=== PATIENT | male | born 1995 | race Caucasian/White ===

== ENCOUNTER 2021-08-10 07:27 | Emergency (ER) | payer OTHER ==
--- NOTE | 2021-08-10 07:31 | PHYS DOC ---
Adult General HPI HPI Patient is a 25-year-old male presenting to the emergency department for reported difficulty waking him up this morning. Patient lives at a custodial house reportedly some people who have had issues with drugs abuse in the past now live. Patient reportedly used K2 earlier in the week but patient denies any drug use at this time. Patient says that he is new to the area but knows that he is in [facility] and he knows the month and the year but not the exact day. He could tell me his name and he said that he has no complaints of pain shortness of breath fevers chills nausea vomiting. He denied all medical complaints. He says he has no medical problems and takes no medications on a re gular basis. He is in no acute distress with normal vital signs. Review of Systems Review of Systems Constitutional: Denies fever or chills [] Eyes: Denies change in visual acuity, redness, or eye pain [] HENT: Denies nasal congestion or sore throat [] Respiratory: Denies cough or shortness of breath [] Cardiovascular: No additional information not addressed in HPI [] GI: Denies abdominal pain, nausea, vomiting, bloody stools or diarrhea [] : Denies dysuria or hematuria [] Musculoskeletal: Denies back pain or joint pain [] Integument: Denies rash or skin lesions [] Neurologic: Denies headache, focal weakness or sensory changes [] Endocrine: Denies polyuria or polydipsia [] All other systems were reviewed and found to be within normal limits, except as documented in this note. Physical Exam Physical Exam Constitutional: Well developed, well nourished, no acute distress, non-toxic appearance. [] HENT: Normocephalic, atraumatic, bilateral external ears normal, oropharynx moist, no oral exudates, nose normal. [] Eyes: PERRLA, EOMI, conjunctiva normal, no discharge. [] Neck: Normal range of motion, no tenderness, supple, no stridor. [] Cardiovascular:Heart rate regular rhythm, no murmur [] Lungs & Thorax: Bilateral breath sounds clear to auscultation [] Abdomen: Bowel sounds normal, soft, no tenderness, no masses, no pulsatile masses. [] Skin: Warm, dry, no erythema, no rash. [] Back: No tenderness, no CVA tenderness. [] Extremities: No tenderness, no cyanosis, no clubbing, ROM intact, no edema. [] Neurologic: Alert and oriented X 3, normal motor function, normal sensory function, no focal deficits noted. [] Psychologic: Affect normal, judgement normal, mood normal. [] EKG EKG [] Radiology/Procedures Radiology/Procedures [] Heart Score C/O Chest Pain: No Risk Factors: Risk Factors: DM, Current or recent (<one month) smoker, HTN, HLP, family hi story of CAD, obesity. Risk Scores: Risk Factors: DM, Current or recent (<one month) smoker, HTN, HLP, family history of CAD, obesity. Course & Med Decision Making Course & Med Decision Making Patient has no medical complaints and he is in no acute distress with normal vital signs, on nurses repeat questioning he did admit to K2 use last night. I ordered blood test and a urinalysis but patient refused stating that he did not want any testing done and wanted to go back to the [facility]. Patient has normal vital signs and has capacity to make his own medical decisions and I do not see any grounds to hold him against his will or force him to get medical tests. Given patient is alert and oriented and is requesting to be discharged and has capacity to make his own medical decisions he will be discharged in stable condition and told that he can come back to emergency department anytime with any concerns. Patient aware and agreeable with plan verbalized understanding above instructions and he was able to ambulate out of the room under his own power with no difficulty. Dragon Disclaimer Dragon Disclaimer This electronic medical record was generated, in whole or in part, using a voice recognition dictation system. Departure Departure: Impression: Primary Impression: Drug use Additional Impression: Encounter for medical screening examination Disposition: LEFT AWOL/ELOPED Condition: STABLE Patient Instructions: Medical Screening Exam Problem Qualifiers FARHAT VELÁZQUEZ DO August 10, 2021 07:31
== END 2021-08-10 07:48 | disposition left against medical advice (07) ==
LOC: ER 07:27
DX: Z00.00 Encounter for general adult medical examination without abnormal findings (principal); F19.90 Other psychoactive substance use, unspecified, uncomplicated
CPT/HCPCS: 99283